=== PATIENT | male | born 1995 | race Caucasian/White ===

== ENCOUNTER 2022-08-22 17:33 | Inpatient (IN) | payer OTHER ==
[~2022-08-22] VITALS: Ht 175.3 cm; Wt 96.7 kg
[2022-08-22] MEDS ORDERED: PRAZ2CAP PO (17:46)
[2022-08-22] MEDS ORDERED: GABA-1171 PO (17:46)
[2022-08-22] MEDS ORDERED: CYCL-707 PO ×2 (17:46→21:03)
[2022-08-22 18:43] LABS: HEMATOCRIT 45.4 % (42.0-52.0); HEMOGLOBIN 16.2 g/dl (13.5-17.5); MEAN CORPUSCULAR HEMOGLOBIN 32.1 pg (27.0-33.0); MEAN CORPUSCULAR HGB CONC 35.7 g/dl (32.0-36.5); MEAN CORPUSCULAR VOLUME 89.9 fl (80.0-96.0); PLATELET COUNT, AUTOMATED 236 10^3/uL (150-450); RED BLOOD COUNT 5.05 10^6/uL (4.30-6.10); WHITE BLOOD COUNT 7.9 10^3/uL (4.0-10.0)
[2022-08-22 19:00] LABS: RSV AMPLIFICATION NEGATIVE (NEGATIVE)
[2022-08-22 19:23] LABS: ACETAMINOPHEN LEVEL < 2.0 UG/ML (10.0-20.0); ALBUMIN 4.3 G/DL (3.2-5.2); ALT/SGPT 53 U/L (7.0-40); BILIRUBIN,DIRECT 0.2 MG/DL (<0.4); BILIRUBIN,TOTAL 0.8 MG/DL (0.3-1.2); BLOOD UREA NITROGEN 11 MG/DL (9-23); CALCIUM LEVEL 8.9 MG/DL (8.5-10.1); CARBON DIOXIDE LEVEL 26 MMOL/L (20-31); CHLORIDE LEVEL 106 MMOL/L (98-107); CREATININE FOR GFR 0.92 MG/DL (0.70-1.30); ETHYL ALCOHOL (ETHANOL) 0.003 % (0.000-0.010); GLOMERULAR FILTRATION RATE > 60.0 (>60); GLUCOSE, FASTING 95 MG/DL (60-100); POTASSIUM SERUM 3.9 MMOL/L (3.5-5.1); SODIUM LEVEL 141 MMOL/L (136-145); THYROID STIMULATING HORMONE 2.495 uIU/ML (0.55-4.78); TOTAL PROTEIN 7.2 G/DL (5.7-8.2)
[2022-08-22 19:25] LABS: SALICYLATE LEVEL < 3.0 MG/DL (<30)
[2022-08-22 19:36] LABS: AMPHETAMINES LEVEL URINE NEGATIVE (NEGATIVE); BARBITURATES URINE NEGATIVE (NEGATIVE); BENZODIAZEPINES URINE NEGATIVE (NEGATIVE); CANNABINOIDS URINE NEGATIVE (NEGATIVE); COCAINE METABOLITE URINE NEGATIVE (NEGATIVE); METHADONE URINE NEGATIVE (NEGATIVE); OPIATES URINE NEGATIVE (NEGATIVE); PHENCYCLIDINE URINE NEGATIVE (NEGATIVE)
[2022-08-22] MEDS ORDERED: traZODone 50 MG TAB PO PRN (20:10)
[2022-08-22] MEDS ORDERED: OLANZapine 5 MG TAB PO PRN (20:10)
[2022-08-22] MEDS ORDERED: ACETAMINOPHEN TAB 650MG DOSE (2X325MG) PO PRN (20:10)
[2022-08-22] MEDS ORDERED: MOM 30ML SUSPENSION UDC PO PRN (20:10)
[2022-08-22] MEDS ORDERED: MAALOX 30 ML SUSP *UDC PO PRN (20:10)
[2022-08-22] MEDS ORDERED: NEUR100C PO (21:03)
[2022-08-22] MEDS ORDERED: HOME MED LIST COMPLETE! XX SCH (21:05)
[2022-08-22 22:58] VITALS: BP 140/95
[2022-08-23 06:37] VITALS: BP 127/68
[2022-08-23] MEDS: SERTRALINE HCL 50 MG TAB PO SCH (09:00)
[2022-08-23] MEDS ORDERED: SUMAtriptan SUCCINATE 25 MG TAB PO PRN (09:45)
[2022-08-23] MEDS ORDERED: LORazepam 0.5 MG TAB PO PRN (10:35)
[2022-08-23] MEDS: NICOTINE 21MG/24HR 1 EA TRANSDERMAL TD SCH (11:04)
[2022-08-23 14:54] LABS: CHOLESTEROL RISK RATIO 4.51 (<5); HDL CHOLESTEROL 33.7 MG/DL (>40); LDL CHOLESTEROL 97.1 MG/DL (<100)
[2022-08-23 16:25] LABS: HEMOGLOBIN A1c 4.3 % (4.0-6.0)
[2022-08-23 18:00] VITALS: BP 129/72
[2022-08-24 06:43] VITALS: BP 135/73
[2022-08-24] MEDS: SERTRALINE HCL 50 MG TAB PO SCH (09:00)
[2022-08-24] MEDS: NICOTINE 21MG/24HR 1 EA TRANSDERMAL TD SCH (09:46)
[2022-08-24] MEDS ORDERED: SUMA25TA3 PO (11:05)
[2022-08-24] MEDS ORDERED: SERT50TA29 PO (11:05)
== END 2022-08-24 12:50 | disposition home or self-care (01) | DRG 882 ==
LOC: M ED 17:33 → M ED INP 20:07 → M PSY 22:19
PROVIDERS: ADMIT Psychiatry & Neurology Psychiatry; ATTEND Psychiatry & Neurology Psychiatry
DX: F43.25 Adjustment disorder with mixed disturbance of emotions and conduct (principal); F33.2 Major depressive disorder, recurrent severe without psychotic features; R45.851 Suicidal ideations; F43.10 Post-traumatic stress disorder, unspecified; F10.90 Alcohol use, unspecified, uncomplicated; M17.10 Unilateral primary osteoarthritis, unspecified knee; M19.019 Primary osteoarthritis, unspecified shoulder; M47.9 Spondylosis, unspecified; F17.290 Nicotine dependence, other tobacco product, uncomplicated; G43.909 Migraine, unspecified, not intractable, without status migrainosus; E66.9 Obesity, unspecified; Z79.899 Other long term (current) drug therapy; Z88.1 Allergy status to other antibiotic agents; Z20.822 Contact with and (suspected) exposure to COVID-19; Z91.51 Personal history of suicidal behavior; Z91.82 Personal history of military deployment